=== PATIENT | female | born 1980 | race African-American/Black ===

== ENCOUNTER 2017-06-19 03:16 | Emergency (ER) | payer SELFPAY ==
[~2017-06-19] VITALS: Ht 170.2 cm; Wt 68.0 kg
[2017-06-19] MEDS ORDERED: KETOROLAC 30MG/ML VIAL IV STA (03:33)
[2017-06-19] MEDS ORDERED: ONDANSETRON HCL 4MG/2ML VIAL IV STA (03:33)
[2017-06-19] MEDS ORDERED: SODIUM CHLORIDE 0.9% 1,000 ML IV ONE (03:33)
[2017-06-19] MEDS ORDERED: FAMOTIDINE 20MG/2ML VIAL IV STA (03:33)
[2017-06-19 03:51] LABS: BASOPHILS % 0.5 % (0.0-2.0); EOSINOPHILS % 1.7 % (0.0-5.0); HEMATOCRIT. 40.5 % (36.0-48.0); HEMOGLOBIN. 13.9 g/dL (12.0-16.0); LYMPHOCYTES % 28.4 % (20.0-50.0); MEAN CORPUSCULAR HEMOGLOBIN 33.1 pg (28.0-32.0); MEAN CORPUSCULAR VOLUME 96.7 fL (81.0-99.0); MEAN PLATELET VOLUME 10.6 fl (7.4-10.4); MONOCYTES % 4.3 % (2.0-8.0); NEUTROPHILS % 65.1 % (40.0-76.0); PLATELET 254 x1000/uL (130-400); RED BLOOD CELL COUNT 4.18 mill/uL (4.2-5.4); RED CELL DISTRIBUTION WIDTH 12.8 % (11.6-14.6)
[2017-06-19 03:57] LABS: PROTHROMBIN TIME 10.3 sec (9.4-11.6)
[2017-06-19 04:03] LABS: CHLORIDE 107 mEq/L (98-107)
[2017-06-19 04:40] LABS: CLARITY URINE TURBID (CLEAR); COLOR URINE ORANGE (YELLOW); KETONES URINE 1+ (NEGATIVE); LEUKOCYTE ESTERASE URINE NEGATIVE (NEGATIVE); NITRITE URINE NEGATIVE (NEGATIVE); OCCULT BLOOD URINE 3+ (NEGATIVE); PH URINE >=9.0 (4.5-8.0); PROTEIN URINE 1+ (NEGATIVE); UROBILINOGEN URINE 0.2 E.U./dL (0.2-1.0)
[2017-06-19 04:48] LABS: *AMPHETAMINES SCREEN URINE NEGATIVE (NEGATIVE); *BARBITURATES SCREEN URINE NEGATIVE (NEGATIVE); *BENZODIAZEPINES SCREEN URINE NEGATIVE (NEGATIVE); *COCAINE SCREEN URINE NEGATIVE (NEGATIVE); METHADONE URINE SCREEN NEGATIVE (NEGATIVE); OPIATES URINE SCREEN NEGATIVE (NEGATIVE); PHENCYCLIDINE URINE SCREEN NEGATIVE (NEGATIVE)
[2017-06-19 04:57] LABS: CANNABINOID URINE SCREEN PRESUMTIVE POSITIVE (NEGATIVE)
[2017-06-19] MEDS ORDERED: POTASSIUM CHLORIDE 20MEQ TABLET SR PO ONE (05:30)
[2017-06-19] MEDS ORDERED: MORPHINE SULFATE 4 MG/ML CPJ (NOT FOR IM USE) IV ONE ×3 (05:30→10:00)
[2017-06-19 05:45] LABS: CHLORIDE 109 mEq/L (98-107)
[2017-06-19] MEDS ORDERED: ACETAMINOPHEN 325MG TABLET PO ONE (07:15)
[2017-06-19] MEDS ORDERED: ONDANSETRON HCL 4MG/2ML VIAL IV ONE ×2 (07:15→10:00)
[2017-06-19] MEDS ORDERED: HYDROMORPHONE HCL/PF 2MG/ML CPJ IV ONE (11:45)
[2017-06-19 12:29] VITALS: BP 139/81
== END 2017-06-19 14:44 | disposition short-term general hospital (02) ==
LOC: ER 03:25
DX: N83.8 Other noninflammatory disorders of ovary, fallopian tube and broad ligament (principal); N20.0 Calculus of kidney
CPT/HCPCS: 36415; 74176; 76830; 76856; 80053; 80305; 81001; 81025; 83690; 85025; 85610; 96361; 96374; 96375; 96376; 99285; J1170; J1885; J2270; J2405; J3490; J7030; Z7610